=== PATIENT | male | born 1950 | race Caucasian/White ===

== ENCOUNTER 2025-05-20 09:36 | Outpatient (AMB) | payer OTHER, SELFPAY ==
--- NOTE | 2025-05-20 09:46 | A.OFFPC_ITS ---
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. He is transferring from [facility] CV: On simvastatin. Had stress test and cath in 2023. Non obstructive CAD Hypothyroid-stable on levothyroxine GI: On pantoprazole ENT-Has followed with Dr Hutson. On claritin MSK: History of bilateral knee replacement. He had - Colonoscopy [id number] 2028 Tdap 2021 PCV 13 2015, 2017 +Shingrix x 2 ROS CONSTITUTIONAL: Denies weight loss, fever and chills. HEENT: Denies changes in vision and hearing. RESPIRATORY: Denies SOB and cough. CV: Denies palpitations and CP GI: Denies abdominal pain, nausea, vomiting and diarrhea. : Infrequent blood in sperm, nocturia MSK: Denies new myalgia and joint pain. SKIN: Denies rash and pruritus. NEUROLOGICAL: Denies headache PSYCHIATRIC: Denies recent changes in mood. PHYSICAL EXAM: GENERAL: Alert and oriented x 3. NAD EYES: EOMI. Anicteric. HENT: Moist mucous membranes. No scleral icterus. No cervical lymphadenopathy. LUNGS: Clear to auscultation bilaterally. CARDIOVASCULAR: Regular rate and rhythm. No murmur. No JVD. ABDOMEN: Soft, non-tender +bs EXTREMITIES: No edema. Non-tender. SKIN: No rashes or lesions. Warm. NEUROLOGIC: No focal neurological deficits. CN II-XII grossly intact PSYCHIATRIC: Cooperative. Appropriate mood and affect [facility] Surgical History S/P total knee arthroplasty H/O cardiac catheterization H/O left inguinal hernia repair H/O colonoscopy History of total right knee replacement Family History Mother Cancer of bile ducts Alcoholism Father Alcoholism Sister Sleep apnea Overweight Other Substance abuse Social History Housing: House Alcohol intake: current Patient Tobacco Use Status: Never used Tobacco e-Cigarette/Vaping Use: Never Used Second Hand Smoke Exposure: No service: No Current occupational status: retired Cognitive needs: No Hearing needs: No Vision needs: Yes (glasses, near sighted ) Questionnaire PHQ-9 Over the last 2 weeks, how often have you been bothered by any of the following problems? 1. Little interest or pleasure in doing things: not at all 2. Feeling down, depressed, or hopeless: not at all 3. Trouble falling or staying asleep, or sleeping too much: not at all 4. Feeling tired or having little energy: several days 5. Poor appetite or overeating: not at all 6. Feeling bad about yourself - or that you are a failure or have let yourself or your family down: not at all 7. Trouble concentrating on things, such as reading the newspaper or watching t elevision: not at all 8. Moving or speaking so slowly that other people could have noticed. Or the opposite - being so fidgety or restless that you have been moving around a lot more than usual: not at all 9. Thoughts that you would be better off or of hurting yourself in some way: not at all Total score: 1 Depression Screening Interpretation: Negative Depression Screening Done: Yes 43673 - PHQ-9 Billing: Yes Source: Developed by Drs. Dustin Salazar, Elsi Coleman, Jason Swain and colleagues, with an educational jarad from [employer]. Thrive Questionnaire Date Thrive assessed: 05/13/25 I am a: Patient What is your living situation today?: I have a steady place to live Within the past 12 months, did the food you bought not last and you didn't have the money to get more?: Never true Within the past 12 months, did you worry whether your food would run out before you got money to buy more?: Never true Do you have trouble paying for medicines?: No Do you have trouble getting transportation to medical appointments?: No Do you have trouble paying your heating and electricity bill?: No Do you have trouble taking care of your child, family member or friend?: No Do you have trouble with day-to-day activities such as bathing, preparing meals, shopping, managing finances, etc.?: No Are you currently unemployed and looking for a job?: No Are you interested in more education?: No Please select the resources that you would like help with: None Currently or been in a relationship where the following occur: No concerns reported THRIVE Score: 0 AUDIT C Alcohol Use Questionnaire (AUDIT-C) 1. How often do you have a drink containing alcohol?: 2-3 times a week 2. How many drinks containing alcohol do you have on a typical day when you are drinking?: 1 or 2 3. How often do you have six or more drinks on one occasion?: Never Total Score: 3 ELIA-7 AMB Questionnaire ELIA-7 Date ELIA - 7 assessed: 05/20/25 Feeling nervous, anxious, or on edge: 1 = Several days Not being able to stop or control worryin = Not at all Worrying too much about different things: 1 = Several days Trouble relaxin = Not at all Being so restless that it is hard to sit still: 0 = Not at all Becoming easily annoyed or irritable: 0 = Not at all Feeling afraid as if something awful might happen: 0 = Not at all Total ELIA-7 score (0-4 normal; 5-9 mild; 10-14 moderate; 15-21 severe): 2 Source: Developed by Drs. Dustin Salazar, Elsi Coleman, Jason Swain and colleagues, with an educational jarad from [employer]. ELAI-7 Assessment Billing ELIA-7 Assessment Tool: ELIA-7 Assessment 58598 Physical exam (Primary Care) Vital Signs: Last Vital Signs Temp 98.4 F 05/20/25 09:54 Pulse 68 05/20/25 09:54 Resp 14 05/20/25 09:54 BP 118/76 05/20/25 09:54 Pulse Ox 96 05/20/25 09:54 Oxygen Delivery Method Room Air 05/20/25 09:54 BMI result Body Mass Index 31.7 Tobacco/Smoking Status: Tobacco use Status Tobacco use date assessed 05/20/25 05/20/25 09:57 Patient Tobacco Use Status Never used Tobacco 05/20/25 09:57 e-Cigarette/Vaping Use Never Used 05/20/25 09:57 PHQ-9: PHQ-9 Score PHQ-9: Total score 1 05/20/25 09:48 Depression Screening Interpretation: Negative Thrive Assessment: Date of Thrive Assessment Date Thrive assessed 05/13/25 05/20/25 09:48 Currently or been in a relationship where the following occur: No concerns reported Coding Level of Care Code New Pt Level 4 (27849) Complex EM visit Add On G2211 Diagnoses Coronary artery disease involving [place] coronary artery of [place] heart without angina pectoris I25.10 Coronary Disease-Associated Artery/Lesion type: [place] artery [place] vs. transplanted heart: [place] heart Associated angina: without angina [place] (obstructive sleep apnea) G47.33 Hyperlipidemia, unspecified hyperlipidemia type E78.5 Hyperlipidemia type: unspecified Primary osteoarthritis involving multiple joints M15.0 Osteoarthritis location: multiple joints Osteoarthritis type: primary Additional Codes ELIA-7 Assessment Billing - ELIA-7 Assessment Tool: ELIA-7 Assessment 82279 ([id number]) PHQ-9 - 76901 - PHQ-9 Billing: Yes ([id number]) Assessment & Plan Assessment & Plan (1) CAD (coronary artery disease): Code(s): I25.10 - Atherosclerotic heart disease of [place] coronary artery without angina pectoris Category: Medical Qualifiers: Coronary Disease-Associated Artery/Lesion type: [place] artery [place] vs. transplanted heart: [place] heart Associated angina: without angina Qualified Code(s): I25.10 - Atherosclerotic heart disease of [place] coronary artery without angina pectoris (2) [place] (obstructive sleep apnea): Code(s): G47.33 - Obstructive sleep apnea (adult) (pediatric) Category: Medical (3) Hyperlipidemia: Code(s): E78.5 - Hyperlipidemia, unspecified Category: Medical Qualifiers: Hyperlipidemia type: unspecified Qualified Code(s): E78.5 - Hyperlipidemia, unspecified (4) Osteoarthritis: Code(s): M19.90 - Unspecified osteoarthritis, unspecified site Category: Medical Qualifiers: Osteoarthritis location: multiple joints Osteoarthritis type: primary Qualified Code(s): M15.0 - Primary generalized (osteo)arthritis Plan 74 year old to reestablish care Past medical, surgical, social reviewed medications reconciled HLD-labs ordered. continue statin Hypothyroid-Clinically and biochemically euthyroid Orders: Orders Complete Blood Count Auto Diff Today E03.9 - Hypothyroidism, unspecified, I25.10 - Atherosclerotic heart disease of [place] coronary artery without angina pectoris, Z12.5 - Encounter for screening for malignant neoplasm of prostate, Z13.0 - Encounter for screening for diseases of the blood and blood-forming organs and certain disorders involving the immune mechanism Prostate Specific Antigen Today E03.9 - Hypothyroidism, unspecified, I25.10 - Atherosclerotic heart disease of [place] coronary artery without angina pectoris, Z12.5 - Encounter for screening for malignant neoplasm of prostate, Z13.0 - Encounter for screening for diseases of the blood and blood-forming organs and certain disorders involving the immune mechanism LDL Cholesterol Direct Today E03.9 - Hypothyroidism, unspecified, I25.10 - Atherosclerotic heart disease of [place] coronary artery without angina pectoris, Z12.5 - Encounter for screening for malignant neoplasm of prostate, Z13.0 - Encounter for screening for diseases of the blood and blood-forming organs and certain disorders involving the immune mechanism Comprehensive Met. Panel Today E03.9 - Hypothyroidism, unspecified, I25.10 - Atherosclerotic heart disease of [place] coronary artery without angina pectoris, Z12.5 - Encounter for screening for malignant neoplasm of prostate, Z13.0 - Encounter for screening for diseases of the blood and blood-forming organs and certain disorders involving the immune mechanism TSH reflex Free T4 Today E03.9 - Hypothyroidism, unspecified, I25.10 - Atherosclerotic heart disease of [place] coronary artery without angina pectoris, Z12.5 - Encounter for screening for malignant neoplasm of prostate, Z13.0 - Encounter for screening for diseases of the blood and blood-forming organs and certain disorders involving the immune mechanism UA CC w/rflx Micro + Cult Today R36.1 - Hematospermia Medications: New tamsulosin (Flomax) 0.4 mg PO DAILY 90 caps 3RF pantoprazole 40 mg PO QAM 90 tabs 3RF simvastatin 40 mg PO BEDTIME 90 tabs 3RF levothyroxine (Synthroid) 100 mcg PO QAM 90 tabs 3RF
[2025-05-20 09:54] VITALS: BP 118/76; PULSE 68; RESP 14; TEMP 36.9; O2SAT 96; BMI 31.7
--- OUTSIDE RECORDS SUMMARY | 2025-05-20 10:06 | XMS_ITS | Clinical Summary ---
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 Levonorgestrel-Ethinyl Estrad 09/03/2007 Other Reaction(s): Runny Nose/Rhinitis Medications psyllium (METAMUCIL) 0.52 gram capsule Take by mouth. Ac tive CYANOCOBALAMIN, VITAMIN B-12, ORAL Take by mouth. Activ e cholecalciferol (VITAMIN D-3) 50 mcg (2,000 unit) tablet Take by mouth 1 (one) time each day. Active acetaminophen (TYLENOL) 325 mg tablet Take 2 tablets (650 mg total) by mouth every 6 (six) hours if needed. Active mometasone (ELOCON) 0.1 % cream Apply sparingly twice a day to eczema as needed 2 Active loratadine (CLARITIN) 10 mg tablet Take 1 tablet (10 mg total) by mouth. Active ketoconazole (NIZORAL) 2 % cream Apply topically 2 times daily as needed. 7 Active ibuprofen (ADVIL,MOTRIN) 200 mg tablet Take 3 tablets (600 mg total) by mouth. Active doxycycline (VIBRAMYCIN) 100 mg capsule Take 1 capsule (100 mg total) by mouth 2 (two) times a day. 4 Active desonide (DESOWEN) 0.05 % cream Apply sparingly 1 - 2 times a day to affected areas as needed 7 Active aspirin 81 mg EC tablet Take 1 tablet (81 mg total) by mouth 1 (one) time. 4 Active albuterol HFA (ProAir HFA) 90 mcg/actuation inhalerIndicatio ns:Asthma, unspecified asthma severity, unspecified whether complicated, unspecified whether persistent Inhale 2 puffs by mouth every 4 (four) hours if needed for shortness of breath. 8.5 g 5 11/28/19 26 Active simvastatin (ZOCOR) 40 mg tablet Take 1 tablet (40 mg total) by mouth at bedtime. 90 tablet 1 5 Active metoprolol tartrate (LOPRESSOR) 25 mg tablet Take 0.5 tablets (12.5 mg total) by mouth 2 (two) times a day. 4 Active simvastatin (ZOCOR) 40 mg tablet Take 1 tablet (40 mg total) by mouth at bedtime. Active levothyroxine (SYNTHROID, LEVOTHROID) 100 mcg tablet Take 1 tablet (100 mcg total) by mouth 1 (one) time each day before breakfast. 90 tablet 1 5 Active fluticasone propionate (FLONASE) 50 mcg/actuation nasal spray USE 2 SPRAYS NASALLY DAILY 48 g 1 5 Active levothyroxine (SYNTHROID, LEVOTHROID) 100 mcg tablet Take 1 tablet (100 mcg total) by mouth 1 (one) time each day before breakfast. 90 tablet 1 5 Active pantoprazole (PROTONIX) 40 mg EC tablet Take 1 tablet (40 mg total) by mouth 1 (one) time each day in the morning. 90 tablet 1 5 Active Active Problems Problem Noted Date Diagnosed Date Class 1 obesity 08/14/2024 Infection of right knee (CMS/HCC V24, CMS/HCC V2 8) 06/13/2023 Sleep apnea 12/06/2021 S/P total knee arthroplasty, bilateral 0 Liver cyst 11/23/2018 Left inguinal hernia 11/23/2018 Cyst of right kidney 11/23/2018 Overview (01/17/2024): Simple cyst u/s 11/2018 Hypothyroidism 01/25/2007 Asthma 11/14/2006 Diverticulitis of colon without hemorrhage 04/03 Pure hypercholesterolemia 04/03/2006 Osteoarthritis 02/23/2006 Overview (01/17/2024): knee rt Hypertrophy of prostate without urinary obstruct ion 02/23/2006 Allergic rhinitis 02/23/2006 Overweight 02/23/2006 Surgical History Surgery Date Site/Laterality Comments SINUS SURGERY 1999 PROCEDURE: RI UNLISTED PROCEDURE ACCESSORY SINUSES; COMMENT: Dr Hutson OTHER SURGICAL HISTORY 1966 PROCEDURE: RI UNLISTED PROCEDURE FEMUR/KNEE; COMMENT: both knees -open proceedures TOTAL KNEE ARTHROPLASTY 2012 PROCEDURE: HISTORICAL TOTAL KNEE REPLACE; COMMENT: right COLONOSCOPY 2012 PROCEDURE: HISTORICAL COLONOSCOPY; COMMENT: no polyps COLONOSCOPY 04/2003 PROCEDURE: HISTORICAL COLONOSCOPY; COMMENT: [facility] OTHER SURGICAL HISTORY 1975 PROCEDURE: RI UNLISTED PROCEDURE FEMUR/KNEE COLONOSCOPY 01/04/2019 PROCEDURE: HISTORICAL COLONOSCOPY; COMMENT: negative to 25 cm, incomplete due to diverticulosis and fixation TOTAL KNEE ARTHROPLASTY 05/11/2020 Left PROCEDURE: RI ARTHRP KNE CONDYLE&PLATU MEDIAL&LAT COMPARTMENTS; COMMENT: dr. mello at [facility] Medical History Medical History Date Comments Allergic rhinitis, cause unspecified DX:Allergic rhinitis, cause unspecified Hypertrophy of prostate with out urinary obstruction and other lower urinary tract symptoms (LUTS) DX:Hypertrophy of prosta te without urinary obstruction and other lower urinary tract symptoms (LUTS) Generalized osteoarthrosis, unspecified site DX:Generalized osteoarthrosi s, unspecified site; COMMENT: knee rt Overweight(278.02) DX:Overweight (278.02) Pure hypercholesterolemia 04/03/2006 DX:Pur e hypercholesterolemia Diverticulosis of colon (wit hout mention of hemorrhage) 04/03/2006 DX:Diverticulosis of colon ( without mention of hemorrhage) Unspecified asthma(493.90) 11/14/2006 DX:Un specified asthma(493.90) Actinic keratosis, hx of DX:Acti jarrell keratosis, hx of History of actinic keratoses 10/30/2006 DX: History of actinic keratoses; COMMENT: Actinic keratosis 08/26 (hypertrophic) 09/22 left confucianist Cyst of right kidney DX:Cyst of right kidney; COMMENT: ultrasound 11/2018-simple cyst Family History Medical History Relation Name Comments Colon cancer Neg Hx Relation Name Status Comments Brother (Age 45) MVA, skin - psoriasis Father (Age 95) Maternal Grandfather (Age 80s) ? Maternal Grandmother (Age 80s) ? Mother (Age 68) cancer fuentes er bile duct Paternal Grandfather (Age 60's) prostate cancer Paternal Grandmother (Age 101) o ld age Sister Alive sleep apnea, ov erweight Son Alive 1 well Social History Tobacco Use Types Packs/Day Years Used Date Smoking Tobacco: Never Smokeless Tobacco: Never Tobacco Cessation:Counseling Given: Not Answered Alcohol Use Standard Drinks/Week Comments Yes 0 (1 standard drink = 0.6 oz pur e alcohol) Housing Instability Answer Date Recorde d Are you worried that in the next 2 months you may not have stable housing? No 11/18/2024 Food Access & Nutrition Answer Date Rec orded Do you have access to a vari ety of food including fruits and vegetables? Yes 11/18/2024 Access to Healthcare Answer Date Record ed Within the last 3 months, ho w many times did you visit the emergency department for your medical care? 0 11/18/2024 Health Literacy Answer Date Recorded How often do you need to hav e someone help you when you read instructions, pamphlets, or other written material from your doctor or pharmacy? Never 11/18/2024 Caregiver: How often do you need to have someone help you when you read instructions, pamphlets, or other written material from your doctor or pharmacy? Not on file 11/18/2024 Financial Risk Answer Date Recorded How hard is it for you to pa y for the very basics like food, housing, medical care, and air conditioning / heating? Not very hard 11/18/2024 Transportation Answer Date Recorded Has the lack of transportati on kept you from meetings, work, or from getting things needed for daily living? No Has the lack of transportati on kept you from medical appointments or from getting medications? No 11/18/2024 Social Isolation Answer Date Recorded How often do you feel lonely or isolated from th ose around you? Never 11/18/2024 Food Risk Answer Date Recorded Within the past 12 months we worried whether our food would run out before we got money to buy more. Never true 11/18/2024 Within the past 12 months th e food we bought just didn't last and we didn't have money to get more. Never true 11/18/2024 Dependent Care Answer Date Recorded Do you need help finding or paying for care for your loved ones. For example, child development instructor or elderly care for an older adult? No 11/18/2024 Education Answer Date Recorded Do you think completing more education or training, like finishing a GED, going to college, or learning a trade, would be helpful for you? N/A 11/18/2024 Employment and Income Answer Date Recor ded During the last four weeks, have you been actively looking for work? No 11/18/2024 Living Situation Answer Date Recorded What is your living situation? 0 11/18/2024 Sex and Gender Information Value Date Recorded Sex Assigned at Not on file Legal Sex Male 10:14 AM EDT Gender Identity Not on file Sexual Orientation Not on file Obstetrics History Last Filed Vital Signs Vital Sign Reading Time Taken Comments Blood Pressure 130/58 11/25/2024 8:21 AM EST Pulse 60 11/25/2024 8:21 AM EST Temperature 36.3 C (97.3 F) 11/25/2024 8:21 AM EST Respiratory Rate - - Oxygen Saturation - - Inhaled Oxygen Concentration - - Weight 103 kg (227 lb 9.6 oz) 11/25/2024 8:21 AM EST Height 182.9 cm (6') 11/25/2024 8:21 AM EST Body Mass Index 30.87 11/25/2024 8:21 AM EST Plan of Treatment Health Maintenance Due Date Last Done Comments COVID-19 Vaccine (8 - Pfizer risk season) 2025 07/26/2024, 08/31/2023, 08/26/2022, Additional history exists Hypertension/CHF/CAD Annual BMP Blood Test 05/21/2025 05/21/2024, 04/30/2024 Influenza Vaccine (#1) 2025 , 08/09/2023, 08/06/2023, Additional history exists Depression Screening 11/18/2025 11/18/2024 Social Influencers of Health Screening 11/18/2025 11/18/2024 Falls Risk Assessment 11/25/2025 11/25/2024 Cholesterol Screening (Lipid Panel) 05/21/2029 05/21/2024, 05/21/2024, 05/18/2023 Colorectal Cancer Screening: Colonoscopy 06/27/2029 06/27/2024, 01/04/2019 DTaP,Tdap,and Td Vaccines (4 - Td or Tdap) 12/06/2031 12/06/2021, 10/13/2011, 10/25/2002 Hepatitis C Screening Completed 08/02/2013 Pneumococcal Vaccine: 50+ Years Completed 08/17/2016, 07/15/2015, 01/27/2009, Additional history exists Zoster Vaccines Completed 11/30/2018, 08/14, 08/28/2012 RSV Immunization Adult Patients Completed 08/31/2023 HIB Vaccines Aged Out No longer eligi ble based on patient's age to complete this topic HPV Vaccines Aged Out No longer eligi ble based on patient's age to complete this topic Hepatitis A Vaccines Aged Out No long er eligible based on patient's age to complete this topic Hepatitis B Vaccines Aged Out No long er eligible based on patient's age to complete this topic IPV Vaccines Aged Out No longer eligi ble based on patient's age to complete this topic MMR Vaccines Aged Out No longer eligi ble based on patient's age to complete this topic Meningococcal ACWY Vaccine Aged Out N o longer eligible based on patient's age to complete this topic Meningococcal B Vaccine Aged Out No l onger eligible based on patient's age to complete this topic RSV Immunization Patients Under 20 months Aged Out No longer eligible based on patient's age to complete this topic Varicella Vaccines Aged Out No longer eligible based on patient's age to complete this topic Procedures Procedure Name Priority Date/Time Associated Diagnosis Comments COLONOSCOPY Routine 06/27/2024 LIPID PANEL Routine 05/21/2024 HEPATITIS C SCREENING Routine 08/02/2013 from Last 3 Months or Most Recently Relevant to Health Maintenance Results * Colonoscopy (06/27/2024) Colonoscopy 5 yr fu Anatomical Region Laterality Modality Other Historical Provider HEALTH MAINTENANCE Final Result * Lipid panel (05/21/2024) LDL/HDL Ratio 3 Triglycerides 64 mg/dL Cholesterol 146 mg/dL HDL 52 mg/dL LDL Cholesterol 82 mg/dL Blood Venous blood specimen / Unknown Historical Provider LAB BLOOD ORDERABLES Rita l Result * Hepatitis C Screening (08/02/2013) Hepatitis C Screening negative Historical Provider HEALTH MAINTENANCE Final Result from Last 3 Months or Most Recently Relevant to Health Maintenance Insurance [facility] Advance Directives Documents on File Type Date Recorded 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
== END 2025-05-20 10:41 | disposition home or self-care (01) ==
LOC: HO.HMCFM 09:37
PROVIDERS: PCP Internal Medicine; Visit Provider Internal Medicine
DX: I25.10 Atherosclerotic heart disease of native coronary artery without angina pectoris (principal); G47.33 Obstructive sleep apnea (adult) (pediatric); E78.5 Hyperlipidemia, unspecified; M15.0 Primary generalized (osteo)arthritis

== ENCOUNTER → 2025-05-20 09:36 | Outpatient (BNVA) | payer OTHER, SELFPAY | PROVIDERS: PCP Internal Medicine; Visit Provider Internal Medicine | DX: Z76.89 Persons encountering health services in other specified circumstances (principal); I25.10 Atherosclerotic heart disease of native coronary artery without angina pectoris; G47.33 Obstructive sleep apnea (adult) (pediatric); E78.5 Hyperlipidemia, unspecified; M15.0 Primary generalized (osteo)arthritis; E03.9 Hypothyroidism, unspecified; Z96.653 Presence of artificial knee joint, bilateral; Z79.899 Other long term (current) drug therapy; Z13.30 Encounter for screening examination for mental health and behavioral disorders, unspecified; Z13.31 Encounter for screening for depression | CPT/HCPCS: 96127 ==

== ENCOUNTER 2025-05-20 10:57 | Outpatient (REF) | payer OTHER, SELFPAY ==
[2025-05-20 12:19] LABS: MANUAL DIFF FLAG NO
[2025-05-20 12:20] LABS: Hematocrit 45.7 % (42.0-52.0); Hemoglobin 15.5 g/dl (14.0-18.0); Imm Gran Abs Auto 0.01 X10*3/uL (0.00-0.03); Imm Gran Pct Auto 0.2 % (0.0-0.4); Lymphocytes Absolute Auto 1.2 X10*3/uL (1.2-4.9); Mean Corpuscular HGB Conc 33.9 g/dl (31.0-36.0); Mean Corpuscular Hemoglobin 33.5 pg (27.0-33.0); Mean Corpuscular Volume 98.7 fL (80.0-98.0); NRBC Abs Auto 0.000 X10*3/uL (0.0-0.012); NRBC Pct Auto 0.0 /100WBC (0.0-0.2); Platelet Count 222 X10*3/uL (160-400); Red Blood Count 4.63 X10*6/uL (4.60-5.80); White Blood Count 5.7 X10*3/uL (4.8-10.8)
[2025-05-20 12:24] LABS: Appearance Urine Clear; Glucose Urine UA Negative (Negative); PH 5.5 (5.0-9.0); Specific Gravity - Urine 1.020 (1.005-1.025)
[2025-05-20 12:57] LABS: Prostate Specific Antigen 2.95 ng/mL (<0.05-4.0)
[2025-05-20 15:48] LABS: Alanine Aminotransferase 27 U/L (0-40); Albumin Level 4.1 g/dL (3.5-5.0); Alkaline Phosphatase 42 U/L (39-117); Anion Gap 10 (12-20); Aspartate Amino Transferase 33 U/L (5-37); Blood Urea Nitrogen 16 mg/dL (9-16); Calcium 9.4 mg/dL (8.4-10.2); Carbon Dioxide 26 mmol/L (22-29); Chloride 108 mmol/L (96-108); Estimated Glomerular Filt Rate > 60; Potassium 4.4 mmol/L (3.3-5.1); Sodium 140 mmol/L (135-145); Total Protein 7.2 g/dL (6.5-8.0)
== END 2025-05-20 10:58 | disposition home or self-care (01) ==
LOC: HO.WFDLDS 10:57
PROVIDERS: Visit Provider Internal Medicine
DX: Z13.0 Encounter for screening for diseases of the blood and blood-forming organs and certain disorders involving the immune mechanism (principal); Z12.5 Encounter for screening for malignant neoplasm of prostate; I25.10 Atherosclerotic heart disease of native coronary artery without angina pectoris; E03.9 Hypothyroidism, unspecified; R36.1 Hematospermia
CPT/HCPCS: 36415; 80053; 81003; 83721; 84153; 84443; 85025